=== PATIENT | male | born 1975 | race Caucasian/White ===

== ENCOUNTER 2020-07-16 22:02 | Emergency (ER) | payer OTHER, BC ==
[~2020-07-16] VITALS: Ht 198.1 cm; Wt 129.6 kg
[2020-07-16 22:08] VITALS: BP 154/104
[2020-07-16] MEDS ORDERED: ONDA4TAB6 PO (22:32)
[2020-07-16] MEDS ORDERED: BENZ-16 PO (22:32)
== END 2020-07-16 22:39 | disposition home or self-care (01) ==
LOC: ER 22:03
DX: J06.9 Acute upper respiratory infection, unspecified (principal); Z20.822 Contact with and (suspected) exposure to COVID-19; R43.8 Other disturbances of smell and taste; R05 Cough; R11.2 Nausea with vomiting, unspecified; R07.89 Other chest pain; Z79.899 Other long term (current) drug therapy
CPT/HCPCS: 36415; 87635; 99283

== ENCOUNTER 2020-07-21 20:22 | Emergency (ER) | payer OTHER, BC ==
[~2020-07-21] VITALS: Ht 198.1 cm; Wt 127.3 kg
[~2020-07-21 20:22] MED LIST: BENZ-16 PO; ONDA4TAB6 PO
[2020-07-21 20:29] VITALS: BP 111/81
[2020-07-21] MEDS ORDERED: DEC4T PO (21:06)
== END 2020-07-21 21:26 | disposition home or self-care (01) ==
LOC: ER 20:23
DX: R06.02 Shortness of breath (principal); Z20.822 Contact with and (suspected) exposure to COVID-19; R05 Cough; R50.9 Fever, unspecified; M79.10 Myalgia, unspecified site; Z79.899 Other long term (current) drug therapy
CPT/HCPCS: 99283